=== PATIENT | male | born 1960 | race Caucasian/White ===

== ENCOUNTER 2020-09-15 06:36 | Observation (INO) ==
[2020-09-15] MEDS ORDERED: ACETAMINOPHEN 1,000 MG/100 ML VIAL IV STA (06:55)
[2020-09-15] MEDS ORDERED: HYDROmorphone INJ 1 MG/ML SYRINGE IV PRN (06:55)
[2020-09-15] MEDS ORDERED: ONDANSETRON INJ 2 MG/ML 2 ML VIAL IV STA (06:55)
[2020-09-15 07:26] LABS: Basophils # (auto) 0.04 K/uL (0-0.2); Basophils % (auto) 0.5 %; Eosinophils # (auto) 0.09 K/uL (0-0.5); Eosinophils % (auto) 1.2 %; Hematocrit (blood only) 48.9 % (42-52); Hemoglobin 16.3 g/dL (14.0-18.0); Immature Granulocytes # (auto) 0.02 K/uL (0.00-0.02); Immature Granulocytes % (auto) 0.3 %; Lymphocytes # (auto) 2.01 K/uL (1.2-3.4); Lymphocytes % (auto) 26.7 %; Mean Corpuscular Hemoglobin 33.2 pg (25-34); Mean Corpuscular Hgb Conc 33.3 g/dL (32-36); Mean Corpuscular Volume 99.6 fL (80-100); Monocytes # (auto) 0.71 K/uL (0.11-0.59); Monocytes % (auto) 9.4 %; Neutrophils # (auto) 4.65 K/uL (1.4-6.5); Neutrophils % (auto) 61.9 %; Platelet Count 241 K/uL (130-400); RDW Coefficient of Variation 13.3 % (11.5-14.5); RDW Standard Deviation 48.7 fL (36.4-46.3); Red Blood Count 4.91 M/uL (4.7-6.1); White Blood Count 7.52 K/uL (4.8-10.8)
[2020-09-15 07:34] LABS: iSTAT Ionized Calcium 1.15 mmol/l (1.12-1.32)
[2020-09-15] MEDS ORDERED: IOVERSOL 100ml IV ONE (07:36)
[2020-09-15 07:42] LABS: Albumin Level 4.2 gm/dl (3.4-5.0); BUN Creatinine Ratio 10.6 (10-20); Calcium 8.9 mg/dl (8.5-10.1); Creatinine Clr Calc Pharmacy 68.2 ml/min; Est GFR (African American) 83.2; Est GFR (Non-African American) 71.8
[2020-09-15 07:44] LABS: Bilirubin,Total 0.6 mg/dl (0.2-1); Globulin 4.2 gm/dl (2.5-4.0); Total Protein 8.4 gm/dl (6.4-8.2)
--- NOTE | 2020-09-15 07:48 | Electrocardiogram Report ---
Test Reason : Blood Pressure : / mmHG Vent. Rate : 092 BPM Atrial Rate : 092 BPM P-R Int : 166 ms QRS Dur : 080 ms QT Int : 358 ms P-R-T Axes : 067 023 017 degrees QTc Int : 442 ms Normal sinus rhythm No previous ECGs available Confirmed by Lm Lao ([id number]) on 09/15/2020 7:48:17 AM Referred By: Confirmed By:Angel Lao
[2020-09-15] MEDS ORDERED: PIPERACILL/TAZOBAC CONSULT ACTIVE PRN ×2 (08:15→13:00)
--- NOTE | 2020-09-15 08:28 | Emergency Department Note ---
History of Present Illness General Chief complaint: Laceration/Cut (Suture/Dermabond) Stated complaint: CUT WITH RIP SAW ON RT HIP Time Seen by Provider: 09/15/20 06:54 Source: patient, RN notes reviewed and old records reviewed Mode of arrival: ambulatory Limitations: no limitations History of Present Illness Provider complaint: Impaled stake Onset (ago): hour(s) less than 1 Location: buttocks and right Radiation: back Severity: moderate Pain Consistency: + intermittent Maximum Pain Intensity: 6 Current Pain Intensity: 6 Quality: + stabbing Relieved By: + immobilization Exacerbated By: + movement Associated symptoms: no chest pain, no diaphoresis, no fever/chills, no headaches, no loss of appetite, no nausea/vomiting and no shortness of breath Treatments prior to arrival: none This 60-year-old male who presents emergency department complaining of a stake that is impaled in his right buttock. The patient was using a saw and a piece of splinter flew off and impaled him through his clothes. Other than the piece of wood the patient has no other complaints. Home Medications Medication Instructions Recorded Confirmed Type lisinopril 20 mg PO DAILY 07/07/20 09/15/20 History amoxicillin-pot clavulanate 1 tab PO BID #10 tab 09/15/20 Rx [Augmentin] hydrocodone-acetaminophen [[place]] 1 - 2 tab PO Q6H PRN #30 tab 09/15/20 Rx Allergies Allergy/AdvReac Type Severity Reaction Status Date / Time No Known Allergies Allergy Unverified 09/15/20 06:40 Past Med/Surg History Medical History Hypertension Surgical History No history of previous surgery Social History Smoking Status: Current every day smoker Tobacco Type: Cigarettes Preferred Language: Kyrgyz Feels Safe at Home: Yes Review of Systems A total of 10 systems reviewed and were otherwise negative Physical Exam Vital Signs Vital Signs - 24 hr 09/15/20 06:42 09/15/20 07:04 09/15/20 07:15 Temperature 36.7 C Temperature Source Oral Pulse Rate 103 H 87 Pulse Rate [Right Finger] Pulse Rate from SpO2 Sensor 88 Pulse Rhythm Regular Pulse Rhythm [Right Finger] Pulse Strength Normal Pulse Strength [Right Finger] Respiratory Rate 18 17 Respiratory Effort / Characteristics Non-Labored Spontaneous Respiratory Depth Normal Respiratory Pattern Regular Blood Pressure 170/105 H 155/96 H Blood Pressure [Left Arm] Blood Pressure Mean 126 118 Blood Pressure Mean [Left Arm] Blood Pressure Position Standing Blood Pressure Position [Left Arm] Pulse Oximetry 98 95 95 Oxygen Delivery Method Room Air Room Air Sepsis Recent Fever Within 48 Hours No Sepsis New/Unexplained Change in Mental Status No Sepsis Action Taken by Nursing No Action Required 09/15/20 07:30 09/15/20 08:00 09/15/20 08:30 Temperature Temperature Source Pulse Rate 111 H 101 H 90 Pulse Rate [Right Finger] Pulse Rate from SpO2 Sensor 105 H 100 H 88 Pulse Rhythm Pulse Rhythm [Right Finger] Pulse Strength Pulse Strength [Right Finger] Respiratory Rate 17 16 15 Respiratory Effort / Characteristics Respiratory Depth Respiratory Pattern Blood Pressure 168/110 H 146/103 H 162/109 H Blood Pressure [Left Arm] Blood Pressure Mean 123 118 114 Blood Pressure Mean [Left Arm] Blood Pressure Position Blood Pressure Position [Left Arm] Pulse Oximetry 96 97 96 Oxygen Delivery Method Sepsis Recent Fever Within 48 Hours Sepsis New/Unexplained Change in Mental Status Sepsis Action Taken by Nursing 09/15/20 09:00 09/15/20 09:30 09/15/20 10:05 Temperature Temperature Source Pulse Rate 98 H 95 H Pulse Rate [Right Finger] Pulse Rate from SpO2 Sensor 93 H Pulse Rhythm Pulse Rhythm [Right Finger] Pulse Strength Pulse Strength [Right Finger] Respiratory Rate 20 22 Respiratory Effort / Characteristics Respiratory Depth Respiratory Pattern Blood Pressure 159/108 H 170/97 H Blood Pressure [Left Arm] Blood Pressure Mean 118 120 Blood Pressure Mean [Left Arm] Blood Pressure Position Blood Pressure Position [Left Arm] Pulse Oximetry 96 97 Oxygen Delivery Method Room Air Sepsis Recent Fever Within 48 Hours Sepsis New/Unexplained Change in Mental Status Sepsis Action Taken by Nursing 09/15/20 10:26 Temperature 36.8 C Temperature Source Oral Pulse Rate Pulse Rate [Right Finger] 91 H Pulse Rate from SpO2 Sensor Pulse Rhythm Pulse Rhythm [Right Finger] Regular Pulse Strength Pulse Strength [Right Finger] Normal Respiratory Rate 20 Respiratory Effort / Characteristics Non-Labored Spontaneous Respiratory Depth Normal Respiratory Pattern Regular Blood Pressure Blood Pressure [Left Arm] 174/106 H Blood Pressure Mean Blood Pressure Mean [Left Arm] 128 Blood Pressure Position Blood Pressure Position [Left Arm] Sitting Pulse Oximetry 95 Oxygen Delivery Method Room Air Sepsis Recent Fever Within 48 Hours Sepsis New/Unexplained Change in Mental Status Sepsis Action Taken by Nursing VITAL SIGNS - Vital signs and nursing notes were reviewed. GENERAL - 60-year-old male appearing stated age who is in no acute distress. Communicates well with provider and answers questions appropriately. SKIN - Without rashes. HEAD - NC/AT. EYES - PERRL with EOMI bilaterally. Sclera anicteric. Palpebral conjunctiva pink and moist with no injection noted. EARS - No deformities of external structures noted on gross examination bilaterally. No pain elicited with palpation of the tragus bilaterally. External auditory canals without discharge or otorrhea. Tympanic membranes pearly lopez without retraction or bulging. No fluid or purulent material visualized behind the TM. Handle of malleus, umbo, cone of light, pars tensa/flaccid all easily visualized. NOSE - Midline and without cyanosis. No epistaxis or purulent drainage noted. Septum midline without deviation or septal hematoma noted. MOUTH/OROPHARYNX - Without perioral cyanosis. Buccal mucosa pink and moist and without leukoplakia. Tongue midline with equal elevation of palate bilaterally. No tonsillar hypertrophy, erythema, or exudates noted. dentition noted. NECK - Neck with FROM. Supple to palpation. lymphadenopathy noted. No nuchal rigidity. LUNGS - Chest wall symmetric without accessory muscle use, intercostals retractions, or central cyanosis. Normal vesicular breath sounds CTA B/L. No wheezes, rales, or rhonchi appreciated. CARDIAC - RRR with S1/S2. No murmur, rubs, or gallops appreciated. ABDOMEN - Abdominal contour without pulsations or visible masses. BS normoactive all four quadrants. No tenderness, palpable masses, hepatosplenomegaly, or ascites noted. BACK Pt has large 0fdy8mm wooden stake protruding out of Rt buttock area EXTREMITIES - No clubbing or peripheral cyanosis. No pretibial edema present. +3/5 radial, posterior tibial, and dorsalis pedis pulses palpated throughout. +5/5 strength noted in UE/LE bilaterally. NEUROLOGIC - Cranial nerves II through XII grossly intact. Sensory intact to light touch throughout. Patellar reflexes +2/4. PSYCH - A&Ox3 and cooperates fully with examiner. Pt is very pleasant and interacts well with examiner. Course Administered Medications Sodium Chloride (Nss 1000ml) 1,000 mls @ 50 mls/hr IV .Q20H ANASTACIA Stop: 10/15/20 12:59 Last Admin: 09/15/20 13:06 Dose: 50 mls/hr Documented by: [id number] Discontinued Medications Bacitracin (Bacitracin Inj 50,000 Unit Vial) Confirm Administered Dose 50,000 units .ROUTE .STK-MED ONE Stop: 09/15/20 11:04 Last Admin: 09/15/20 11:20 Dose: 50,000 units Documented by: [id number] Acetaminophen (Ofirmev) 1,000 mg in 100 mls @ 400 mls/hr IV NOW STA Stop: 09/15/20 07:09 Last Infusion: 09/15/20 09:38 Dose: 0 mls/hr Documented by: [id number] Admin: 09/15/20 09:08 Dose: 400 mls/hr Documented by: [id number] Piperacillin Sod/Tazobactam (Sod 3.375 gm/ Dextrose) 100 ml in 115 mls @ 230 mls/hr IV NOW STA Stop: 09/15/20 09:26 Last Infusion: 09/15/20 09:38 Dose: 0 mls/hr Documented by: [id number] Admin: 09/15/20 09:08 Dose: 230 mls/hr Documented by: [id number] Ioversol (Ioversol 100ml) 94 ml IV ONCE ONE Stop: 09/15/20 07:37 Last Admin: 09/15/20 07:36 Dose: 94 ml Documented by: [id number] Lidocaine HCl (Lidocaine Hcl 1% 20 Ml Vial) Confirm Administered Dose 20 ml .ROUTE .STK-MED ONE Stop: 09/15/20 10:13 Last Admin: 09/15/20 11:22 Dose: 16 ml Documented by: [id number] Ondansetron HCl (Ondansetron Inj 2 Mg/Ml 2 Ml Vial) 4 mg IV NOW STA Stop: 09/15/20 06:56 Last Admin: 09/15/20 09:09 Dose: Not Given Documented by: [id number] Ondansetron HCl (Ondansetron Inj 2 Mg/Ml 2 Ml Vial) Confirm Administered Dose 4 mg .ROUTE .STK-MED ONE Stop: 09/15/20 09:04 Last Admin: 09/15/20 09:09 Dose: Not Given Documented by: [id number] Medical Decision Making Differential Diagnosis Fracture, dislocation, contusion, intra-abdominal, pneumothorax, intrathoracic, intracranial, neurologic, compartment syndrome, rhabdomyolysis, as well as other pathologies. Medical Records Attestation: I reviewed the patient's medical records. Home Medications Current Medication List: was personally reviewed by me Laboratory Data Attestation: I reviewed the patient's lab results. Result diagrams: 09/15/20 07:13 09/15/20 07:13 Lab Results 09/15/20 09/15/20 09/15/20 Range/Units 07:13 07:13 07:22 WBC 7.52 (4.8-10.8) K/uL RBC 4.91 (4.7-6.1) M/uL Hgb 16.3 (14.0-18.0) g/dL POC Hgb 17.0 (14.0-18.0) g/dl Hct 48.9 (42-52) % POC Hct 50 (42-52) % MCV 99.6 (80-100) fL MCH 33.2 (25-34) pg MCHC 33.3 (32-36) g/dL RDW Std Deviation 48.7 H (36.4-46.3) fL RDW Coeff of Bridget 13.3 (11.5-14.5) % Plt Count 241 (130-400) K/uL MPV 9.0 (7.4-10.4) fL Immature Gran % (Auto) 0.3 % Neut % (Auto) 61.9 % Lymph % (Auto) 26.7 % Tyrrell % (Auto) 9.4 % Eos % (Auto) 1.2 % Baso % (Auto) 0.5 % Neut # (Auto) 4.65 (1.4-6.5) K/uL Lymph # (Auto) 2.01 (1.2-3.4) K/uL Tyrrell # (Auto) 0.71 H (0.11-0.59) K/uL Eos # (Auto) 0.09 (0-0.5) K/uL Baso # (Auto) 0.04 (0-0.2) K/uL Immature Gran # (Auto) 0.02 (0.00-0.02) K/uL POC Sodium 137 (135-144) mmol/L Sodium 136 (136-145) mmol/L POC Potassium 4.0 (3.3-5.0) mmol/L Potassium 4.0 (3.5-5.1) mmol/L POC Chloride 103 (101-112) mmol/L Chloride 106 (98-107) mmol/L Carbon Dioxide 26 (21-32) mmol/L POC Total CO2 27 (24-31) mmol/L Anion Gap 4.0 (3-11) POC Anion Gap 12.0 L (16-25) mmol/L POC BUN 12 (7-18) mg/dl BUN 12 (7-18) mg/dl Creatinine 1.11 (0.6-1.4) mg/dl POC Creatinine 1.0 (0.6-1.3) mg/dl Est Cr Clr Drug Dosing 68.2 ml/min Est GFR ( Amer) 83.2 Est GFR (Non-Af Amer) 71.8 BUN/Creatinine Ratio 10.6 (10-20) Glucose 102 H (70-99) mg/dl POC Glucose (other) 102 H (70-99) mg/dl Calcium 8.9 (8.5-10.1) mg/dl POC Ioniz Calcium Grupo 1.15 (1.12-1.32) mmol/l Total Bilirubin 0.6 (0.2-1) mg/dl AST 13 L (15-37) U/L ALT 19 (12-78) U/L Alkaline Phosphatase 71 (45-117) U/L Total Protein 8.4 H (6.4-8.2) gm/dl Albumin 4.2 (3.4-5.0) gm/dl Globulin 4.2 H (2.5-4.0) gm/dl Albumin/Globulin Ratio 1.0 (0.9-2) COVID-19 Eval Order SARS-CoV-2, RNA, NAAT (NEGATIVE) 09/15/20 09/15/20 Range/Units 09:14 09:14 WBC (4.8-10.8) K/uL RBC (4.7-6.1) M/uL Hgb (14.0-18.0) g/dL POC Hgb (14.0-18.0) g/dl Hct (42-52) % POC Hct (42-52) % MCV (80-100) fL MCH (25-34) pg MCHC (32-36) g/dL RDW Std Deviation (36.4-46.3) fL RDW Coeff of Bridget (11.5-14.5) % Plt Count (130-400) K/uL MPV (7.4-10.4) fL Immature Gran % (Auto) % Neut % (Auto) % Lymph % (Auto) % Tyrrell % (Auto) % Eos % (Auto) % Baso % (Auto) % Neut # (Auto) (1.4-6.5) K/uL Lymph # (Auto) (1.2-3.4) K/uL Tyrrell # (Auto) (0.11-0.59) K/uL Eos # (Auto) (0-0.5) K/uL Baso # (Auto) (0-0.2) K/uL Immature Gran # (Auto) (0.00-0.02) K/uL POC Sodium (135-144) mmol/L Sodium (136-145) mmol/L POC Potassium (3.3-5.0) mmol/L Potassium (3.5-5.1) mmol/L POC Chloride (101-112) mmol/L Chloride (98-107) mmol/L Carbon Dioxide (21-32) mmol/L POC Total CO2 (24-31) mmol/L Anion Gap (3-11) POC Anion Gap (16-25) mmol/L POC BUN (7-18) mg/dl BUN (7-18) mg/dl Creatinine (0.6-1.4) mg/dl POC Creatinine (0.6-1.3) mg/dl Est Cr Clr Drug Dosing ml/min Est GFR ( Amer) Est GFR (Non-Af Amer) BUN/Creatinine Ratio (10-20) Glucose (70-99) mg/dl POC Glucose (other) (70-99) mg/dl Calcium (8.5-10.1) mg/dl POC Ioniz Calcium Grupo (1.12-1.32) mmol/l Total Bilirubin (0.2-1) mg/dl AST (15-37) U/L ALT (12-78) U/L Alkaline Phosphatase (45-117) U/L Total Protein (6.4-8.2) gm/dl Albumin (3.4-5.0) gm/dl Globulin (2.5-4.0) gm/dl Albumin/Globulin Ratio (0.9-2) COVID-19 Eval Order Covid19 IDNow [facility] SARS-CoV-2, RNA, NAAT NEGATIVE (NEGATIVE) Imaging Data Radiologist's Impression: [facility], [place] [phone] CT Scan Report Patient: NORA CHAHAL Admit Date: 09/15/20 MR#: [id number] Address1: [address] Acct ID:[id number] Address2: Date: 1960 [facility] Zip: [place] [id number] Age: 60 Location: ED Sex: M Room/Bed: Att Phy: Diagnosis: CUT WITH RIP SAW ON RT HIP Margo Phy: Simón Navarro D.O. Service Date: 09/15/20 Fam Phy: Interpreting Phy: Hakan Garcia Admit Phy: Ordering Phy: Balwinder Travis MD cc: ~ CT pelvis w/IV con only HISTORY: 60 years-old Male Pt impaled by wood acute penetrating trauma of the right flank. Patient reports that he was cutting wood and a portion of the Wood penetrated his right flank/gluteal tissues. COMPARISON: None TECHNIQUE: Multiple axial CT images of the pelvis were obtained following the intravenous ministration of Optiray 320. A dose lowering technique was used consistent with the principals of ALARA. FINDINGS: Limited exam secondary to positioning of the patient within the gantry. Moderate mixed plaque of the abdominal aorta and iliac arteries without aneurysm. No retroperitoneal or intrapelvic hemorrhage. There is no adenopathy. Enlarged prostate. Mild urinary bladder wall thickening with partial distention. There is asymmetric anterior and right lateral polypoid thickening. The rectum is fluid- filled. Colonic diverticulosis. Noninflamed appendix. No bowel obstruction. The imaged inferior right hepatic lobe is unremarkable. Calcifications are noted within the superior left scrotum. There is a linear lucent foreign body which measures approximately 5 cm in length and extends into the lateral margin of the gluteus leti and also possi alicia into the gluteus medius musculature on image 511 of series 2. Mild adjacent subcutaneous edema. There is no opaque foreign body or large hematoma. No acute fracture. Degenerative changes of the lower lumbar spine, pelvis and hips. Sclerosis of the L4 vertebral body is partially imaged and may be on a degenerative basis. IMPRESSION: 1. Penetrating trauma with 5.0 cm linear lucent foreign body extending into the lateral fibers of the right gluteus leti and also possibly the superficial fi bers of the gluteus medius musculature. No opaque foreign body or large hematoma. 2. No acute posttraumatic intrapelvic abnormality. 3. No acute fracture. 4. Irregular polypoid mucosal thickening of the rectum is incidentally noted. Correlation with a follow-up colonoscopy recommended. 5. Prostamegaly. ACT 112: Negative or not required by law. The above report was generated using voice recognition software. It may contain grammatical, syntax or spelling errors. Electronically signed by: Emmett Garcia M.D. 09/15/2020 8:57 AM Dictated: 09/15/20845 Transcribed: 09/15/20845 ECG Data Attestation: I personally reviewed and interpreted this ECG as follows: Indication: + other (trauma) Rate (beats per minute): 92 Rhythm: + normal sinus ECG Intervals/blocks: + Normal QT-c (442) ECG [place]: + Normal ECG ST segments: no ST depression and no ST elevation Comparison ECG Date: no prior available MDM Narrative Patient was seen and evaluated as above in room C4. Review was performed of nursing notes and vital signs. I did review pertinent previous visits and patient history. After obtaining a thorough history and physical examination the above work up was performed. This is a 60-year-old male who presents emergency department complaining of an impaled wooden stake to his right hip. Maintenance was able to remove most of the stake. He was sent for CAT scan which shows the stake impaled into the gluteus medius. Based on this the case was discussed with surgery who is going to take the patient to the operating room. An order was placed for continuous cardiac monitoring. The monitor shows a rate of 86 with Normal SInus rhythm. The patient was evaluated during a period of high volume and high acuity while the hospital was at overcapacity during the global COVID-19 pandemic, and that diagnosis was suspected/considered upon their initial presentation. Their evaluation, treatment and testing was consistent with current guidelines for patients who present with complaints or symptoms that may be related to COVID- 19. Impression & Plan Foreign body (FB) in soft tissue, Hypertension Discharge Plan Visit Data Chief Complaint: Laceration/Cut (Suture/Dermabond) Stated Complaint: CUT WITH RIP SAW ON RT HIP ED Provider: Balwinder Travis Discharge Problem: Foreign body (FB) in soft tissue, Hypertension Patient Disposition: Still a Patient Discharge Instructions Interventions: ED Discharge Assessment Last Done: 09/15/20 10:05 Discharge Problem: Hypertension Qualifiers: Hypertension type: unspecified Qualified Code(s): I10 - Essential (primary) hypertension
--- NOTE | 2020-09-15 08:36 | History & Physical Report ---
Date of Service September 15, 2020 Assessment & Plan (1) Foreign body (FB) in soft tissue: Will plan for removal of foreign body and wound exploration in the OR this morning. Preop Zobernardn. Dr. Rosapatient seen in the emergency room, sitting on the edge of his bed in no distress He did undergo CAT scan showing some lucency in the right hip area with a history of impaled by a piece of wood during a cutting process I feel the safest and most efficient way to remove this is to take him to the operating room and under sedation and local make an incision and be sure to remove the entire Foreign body as well as cleaning the wound and possible drain placement. We may be able to discharge him home on antibiotics later today. He has had a recent tetanus shot. Covid testing is pending History of Present Illness Primary Care Provider: Simón Navarro 60 y/o male was cutting wood this morning at work, was impaled right gluteal region by a piece of wood. Was lacy to the ED for evaluation, we were asked to evaluate further after CT was obtained. Allergies Allergy/AdvReac Type Severity Reaction Status Date / Time No Known Allergies Allergy Unverified 09/15/20 06:40 Home Medications Medication Instructions Recorded Confirmed Type lisinopril 20 mg PO DAILY 07/07/20 09/15/20 History Past Med/Surg History Medical History Hypertension Surgical History No history of previous surgery Social History Smoking Status: Current every day smoker Tobacco Type: Cigarettes Preferred Language: Bangladeshi Feels Safe at Home: Yes Review of Systems Constitutional: no fever and no chills Respiratory: no cough and no dyspnea Physical Exam Constitutional: WD/WN, vitals as above Respiratory: normal respiratory effort, lungs clear to auscultation Cardiovascular: RRR, no murmur, no edema Gastrointestinal (Abdomen): Percussion/Palpation: abdomen soft; abdomen nontender large splinter of wood impaled in right gluteal region upper outer quadrant. clothing has been cut around the foreign body Results & Data Results & Data (MN) Vital Signs (Past 12 Hours) Vital Signs Temp Pulse Resp BP Pulse Ox 09/15/20 07:04 95 09/15/20 06:42 36.7 C 103 H 18 170/105 H 98 PG Care Time/CCT Total # of Minutes Spent Total Time Spent with Patient: Total time spent is greater than 50% in coordination of care (as documented) at patient's floor/unit and/or counseling patient: Coding Level of Care Code None Diagnoses Foreign body (FB) in soft tissue M79.5
[2020-09-15] MEDS ORDERED: PIPERACILLIN/TAZOBACTAM 3.375 GM in DEXTROSE 5% 100 ML/100 ML BAG IV STA (08:57)
--- NOTE | 2020-09-15 08:58 | CT Scan Report ---
CT pelvis w/IV con only HISTORY: 60 years-old Male Pt impaled by wood acute penetrating trauma of the right flank. Patient r eports that he was cutting wood and a portion of the Wood penetrated his right flank/gluteal tissues. COMPARISON: None TECHNIQUE: Multiple axial CT images of the pelvis were obtained following the intravenous ministratio n of Optiray 320. A dose lowering technique was used consistent with the principals of ZAIN. FINDINGS: Limited exam secondary to positioning of the patient within the gantry. Moderate mixed plaque of the abdominal aorta and iliac arteries without aneurysm. No retroperitoneal or intrapelvic hemorrhage. Th ere is no adenopathy. Enlarged prostate. Mild urinary bladder wall thickening with partial distention . There is asymmetric anterior and right lateral polypoid thickening. The rectum is fluid-filled. Col onic diverticulosis. Noninflamed appendix. No bowel obstruction. The imaged inferior right hepatic lo be is unremarkable. Calcifications are noted within the superior left scrotum. There is a linear lucent foreign body which measures approximately 5 cm in length and extends into th e lateral margin of the gluteus leti and also possibly into the gluteus medius musculature on imag e 511 of series 2. Mild adjacent subcutaneous edema. There is no opaque foreign body or large hematom a. No acute fracture. Degenerative changes of the lower lumbar spine, pelvis and hips. Sclerosis of t he L4 vertebral body is partially imaged and may be on a degenerative basis. IMPRESSION: 1. Penetrating trauma with 5.0 cm linear lucent foreign body extending into the lateral fibers of the right gluteus leti and also possibly the superficial fibers of the gluteus medius musculature. No opaque foreign body or large hematoma. 2. No acute posttraumatic intrapelvic abnormality. 3. No acute fracture. 4. Irregular polypoid mucosal thickening of the rectum is incidentally noted. Correlation with a foll ow-up colonoscopy recommended. 5. Prostamegaly. ACT 112: Negative or not required by law. The above report was generated using voice recognition software. It may contain grammatical, syntax o r spelling errors. Electronically signed by: Emmett Garcia M.D. 09/15/2020 8:57 AM
[2020-09-15] MEDS ORDERED: ONDANSETRON INJ 2 MG/ML 2 ML VIAL ONE ×2 (09:03→11:50)
[2020-09-15] MEDS ORDERED: LIDOCAINE HCL 1% 20 ML VIAL ONE (10:12)
--- NOTE | 2020-09-15 10:22 | Anesthesiology Consultation ---
Date of Service September 15, 2020 Assessment & Plan Chart Review Chart Review: Acceptable Risk for Surgery Consults Requested none History Surgery Operation Date: 09/15/20 07:00 Proposed Procedures p Removal Foreign Body Right Flank - Geoffrey Rosa MD, FACS Height/Weight Height: 6 ft 1 in Weight: 68.1 kg Allergies Allergy/AdvReac Type Severity Reaction Status Date / Time No Known Allergies Allergy Unverified 09/15/20 06:40 Medications Home Medications Medication Instructions Recorded Confirmed Last Taken lisinopril 20 mg PO DAILY 07/07/20 09/15/20 07/07/20 Past Medical History Medical History Hypertension Past Surgical History Surgical History No history of previous surgery Social History Smoking Status: Current every day smoker Physical Exam Vital Signs Last Vital Signs Temp 36.7 C 09/15/20 06:42 Pulse 95 H 09/15/20 09:30 Resp 22 09/15/20 09:30 BP 170/97 H 09/15/20 09:30 Pulse Ox 97 09/15/20 09:30 Testing Laboratory Results 09/15/20 07:13 09/15/20 07:13 09/15/20 07:22 POC Glucose (other) 102 H
[2020-09-15] MEDS ORDERED: HYDROmorphone INJ 2 MG/ML SYR/VIAL IV PRN (10:23)
[2020-09-15] MEDS ORDERED: ATROPINE SULFATE 0.1 MG/ML 10ML SYR IV PRN (10:23)
[2020-09-15] MEDS ORDERED: ONDANSETRON INJ 2 MG/ML 2 ML VIAL IV PRN ×2 (10:23→13:00)
[2020-09-15] MEDS ORDERED: METOCLOPRAMIDE HCL INJ 5 MG/ML 2 ML VIAL IV PRN (10:23)
[2020-09-15] MEDS ORDERED: fentaNYL citrate 100 MCG/2 ML VIAL IV PRN (10:23)
[2020-09-15] MEDS ORDERED: PROMETHAZINE HCL 12.5 MG in SODIUM CHLORIDE 0.9% 50 ML IV PRN ×2 (10:23→13:00)
[2020-09-15] MEDS ORDERED: ePHEDrine sulfate 50 MG/ML AMP IV PRN (10:23)
[2020-09-15] MEDS ORDERED: fentaNYL citrate 100 MCG/2 ML VIAL ONE (10:29)
[2020-09-15] MEDS ORDERED: LIDOCAINE HCL 2% 2 ML VIAL/AMP(20MG/ML) INFIL ONE (10:29)
[2020-09-15] MEDS ORDERED: MIDAZOLAM HCL 1 MG/ML 2ML VIAL ONE (10:29)
[2020-09-15] MEDS ORDERED: PROPOFOL IV EMULSION 10 MG/ML 20 ML VIAL IV ONE (10:29)
[2020-09-15] MEDS ORDERED: BACITRACIN INJ 50,000 UNIT VIAL ONE (11:03)
--- NOTE | 2020-09-15 11:24 | Post Operative Brief Note ---
PG Immediate Post Op with CF Date of Surgery September 15, 2020 Pre & Post Diagnosis Foreign body right thigh Operation Date: 09/15/20 07:00 Pre-Op Diagnosis: Foreign body right thigh Post-Op Diagnosis: Foreign body right thigh I identified the patient and participated in the time-out.: Yes Procedure Operation Date: 09/15/20 07:00 Actual Procedures p Removal Foreign Body Right Thigh(Right) - Geoffrey Rosa MD, FACS Surgeon Geoffrey Rosa MD, FACS Educational Interpreter Dunia Nunez Estimated Blood Loss 5 Findings Consistent with Post-Op Diagnosis Specimens Specimen Description: Permanent Specimen: A) Foreign Body Right Thigh Drains [place] Drain (1/4in)
[2020-09-15] MEDS ORDERED: DEXAMETHASONE SOD INJ 4 MG/ML VIAL ONE (11:50)
[2020-09-15] MEDS ORDERED: GLYCOPYRROLATE 0.2 MG/ML VIAL ONE (11:50)
[2020-09-15] MEDS ORDERED: NEOSTIGMINE METHYLSULFATE 5 MG/5 ML SYR ONE (11:50)
--- NOTE | 2020-09-15 11:51 | Operative Report (OR) ---
DATE OF OPERATION: 09/15/2020 NAME OF OPERATION: Removal of foreign body from right thigh, 5 cm piece of wood. STAFF SURGEON: Geoffrey Rosa MD. INSPECTOR PLUG SEAM: Edgar Nunez PA-C. ANESTHESIA: General. DESCRIPTION OF PROCEDURE: The patient was brought in the operating room and placed on the operating table in the left lateral decubitus position after intubation. His right hip area was prepped and draped in usual fashion. He had a 1.5 cm piece of wood in width coming out of his leg. Skin and subcutaneous tissue around this area were anesthetized using 1% plain lidocaine. Incision made approximately 3-4 cm carrying dissection very deep down into the muscle and removing the piece of wood, which was approximately 5 cm in length. The site was then irrigated with antibiotic solution. A portion of a quarter inch Raulito drain placed into the wound and secured to both ends using 4-0 nylon suture and then the skin loosely reapproximated using 4-0 nylon suture. Some moistened gauze was placed into the incision in the center and then a dry dressing applied. The patient was transferred to recovery room in stable condition. My election assistant helped with prepping, draping, removal of the wooden piece and closure of the wound. I attest to the content of the Intraoperative Record and any orders documented therein. Any exception s are noted below.
--- NOTE | 2020-09-15 12:49 | Anesthesiology Progress Note ---
Date of Service September 15, 2020 Anesthesia Post Procedure Vital Signs Vital Signs: Temp Pulse Pulse Pulse Resp BP BP 09/15/20 12:25 86 16 119/79 09/15/20 12:15 36.3 C L 70 17 113/77 09/15/20 12:05 70 18 123/88 09/15/20 11:55 76 19 118/79 09/15/20 11:45 83 15 134/96 09/15/20 11:39 36.3 C L 77 17 140/91 09/15/20 10:26 36.8 C 91 H 20 174/106 H 09/15/20 09:30 95 H 22 170/97 H 09/15/20 09:00 98 H 20 159/108 H 09/15/20 08:30 90 15 162/109 H 09/15/20 08:00 101 H 16 146/103 H 09/15/20 07:30 111 H 17 168/110 H 09/15/20 07:15 87 17 155/96 H 09/15/20 07:04 09/15/20 06:42 36.7 C 103 H 18 170/105 H Pulse Ox 09/15/20 12:25 93 09/15/20 12:15 95 09/15/20 12:05 95 09/15/20 11:55 98 09/15/20 11:45 97 09/15/20 11:39 96 09/15/20 10:26 95 09/15/20 09:30 97 09/15/20 09:00 96 09/15/20 08:30 96 09/15/20 08:00 97 09/15/20 07:30 96 09/15/20 07:15 95 09/15/20 07:04 95 09/15/20 06:42 98 Transfer of Care Handoff Completed per policy Notes Mental Status: alert / awake / arousable and participated in evaluation Patient Amnestic to Procedure: Yes Nausea / Vomiting: adequately controlled Pain: adequately controlled Airway Patency, RR, SpO2: stable & adequate BP & HR: stable & adequate Hydration State: stable & adequate Anesthetic Complications: no major complications apparent
[2020-09-15] MEDS ORDERED: ACETAMINOPHEN 325 MG TAB PO PRN (13:00)
[2020-09-15] MEDS ORDERED: HYDROmorphone INJ 0.5 MG/0.5 ML SYR IV PRN (13:00)
[2020-09-15] MEDS ORDERED: HYDROCODONE/ACETAMOPHEN 5/325MG TAB PO PRN ×2 (13:00)
[2020-09-15] MEDS ORDERED: IBUPROFEN 600 MG TAB PO PRN (13:00)
[2020-09-15] MEDS ORDERED: SODIUM CHLORIDE 0.9% 1000ML 1,000 ML IV SCH (13:00)
[2020-09-15] MEDS ORDERED: PIPERACILLIN/TAZOBACTAM 3.375 GM in DEXTROSE 5% 100 ML IV SCH ×2 (13:00→14:00)
[2020-09-16] MEDS ORDERED: lisinopril 20 MG TAB PO SCH (09:00)
--- NOTE | 2020-09-19 07:42 | Discharge Summary ---
Date of Service September 19, 2020 Admission HPI Per Admitting Provider 60 y/o male was cutting wood this morning at work, was impaled right gluteal region by a piece of wood. Was lacy to the ED for evaluation, we were asked to evaluate further after CT was obtained. Principal Diagnosis Right buttock foreign body Discharge Exam Constitutional WD/WN, vitals as above Skin right buttock dressing intact Discharge Data Allergies Allergy/AdvReac Type Severity Reaction Status Date / Time No Known Allergies Allergy Unverified 09/15/20 06:40 Consultations 09/15/20 08:51 ED Decision to Admit Stat Procedures Performed Operation Date: 09/15/20 07:00 Actual Procedures p Removal Foreign Body Right Thigh(Right) - Geoffrey Rosa MD, FACS Ordered Studies 09/15/20 06:54 CT pelvis w/IV con only Urgent Hospital Course (1) Foreign body (FB) in soft tissue: 60 y/o male brought to the ED from work with foreign body (piece of wood) impaled in his right buttock. He was taken to the OR for removal of the object and transferred to the surgical floor for recovery and IV antibiotics. He was stable for discharge home later in the day on oral antibiotics. Total Time Total Time Spent Total Time Spent (In Minutes): 10 Discharge Plan Discharge Items Patient Disposition: Home - Self-Care Reason For Visit: CUT WITH RIP SAW ON RT HIP Discharge Diagnosis: Foreign body right thigh Activity: As commented below Activity Comment: Light activity for 2 weeks Lifting: No more than 25 pounds Bathing Comment: May shower Sexual Activity: When tolerated Exercise Comment: Weight 2 weeks for exercise Non-emergency contact: Primary Care Provider and Surgeon Call non-emergency contact if: your pain is not controlled, your temperature is above 101 and your wound has increased drainage Follow-up/Referrals: Geoffrey Rosa MD, FACS [Physician] - 09/20/20 10:00 am Simón Navarro [Primary Care Provider] - Diet: Regular Addtl Attending Provider Instructions: SPECIAL CARE INSTRUCTIONS: * Cover incisions and change daily for comfort/drainage. * * * Avoid constipation- * May Use Senokot S and Milk of Magnesium twice daily as directed on the package * May use ibuprofen for pain as tolerated. * Expect some swelling and bruising. Call your doctor if: * Temperature above 101 degrees * Pain not relieved by pain medicine ordered * There is increased drainage or redness from any incision * You have any unanswered questions or concerns [phone]. FOLLOW UP VISIT: If not already scheduled, please call the office for a follow-up visit. For next weekdrain removal and wound check- Friday or Fri if possible OFFICE PHONE NUMBER: Dr. Rosa Office Pending Studies at Discharge: No Stand-Alone Forms: My [facility], Work/School Release (Inpt) Medications and DC Order Prescriptions: New amoxicillin-pot clavulanate [Augmentin] 875-125 mg tablet 1 tab PO BID Qty: 10 RF: 0 hydrocodone-acetaminophen [[place]] 5-325 mg tablet 1 - 2 tab PO Q6H PRN (Reason: pain) Qty: 30 RF: 0 Continued lisinopril 20 mg Tablet 20 mg PO DAILY RF: 0 Discharge Orders: Discharge Order (Routine); Ordered 09/15/20 Ordered By: Geoffrey Ceballos/Other Patient Handouts: DVT Post Op Prevention Admission Data Admit Date/Time: 09/15/20 11:24 Attending Provider: Geoffrey Rosa Admit Provider: Geoffrey Rosa Primary Care Provider: Simón Navarro Other Providers: Geoffrey Rosa Other Interventions: Discharge Summary Assessment (RN) Last Done: 09/15/20 13:32 Coding Level of Care Code D/C Day Management <30 mins Diagnoses Foreign body (FB) in soft tissue M79.5
--- NOTE | 2020-09-19 09:06 | Discharge Summary (DS) ---
Patient was discharged home same day. STAFF SURGEON: Geoffrey Rosa MD. HISTORY OF PRESENT ILLNESS: The patient is a 60-year-old male brought to the Emergency Room with foreign body in his right thigh from woodworking. It was a piece of wood, which was relatively adherent and into the muscle. HOSPITAL COURSE: The patient was taken to the operating room where he underwent excision of the 6.5 cm piece of wood from his right leg. I felt that he may need observation, but it appeared he was doing very well later in the day and was felt stable for discharge home on 09/15/2020 on antibiotics and pain medication, to be followed in the surgical clinic. He did have a drain in place.
== END 2020-09-15 14:30 | disposition home or self-care (01) ==
LOC: ED 06:36 → ASU 10:05 → 3N 10:05